=== PATIENT | male | born 2000 | race Caucasian/White ===

== ENCOUNTER 2022-06-04 08:48 | Emergency (ER) | payer OTHER, SELFPAY ==
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
[2022-06-04 11:16] VITALS: BP 140/91; PULSE 89; RESP 18; TEMP 37.8; O2SAT 100
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
--- NOTE | 2022-06-04 12:05 | PC.NURSE ---
Dr. Ocasio at bedside to assess pt
[2022-06-04] MEDS: ACETAMINOPHEN 500 MG TABLET 1000 MG PO (12:20)
[2022-06-04] MEDS: ONDANSETRON HCL ODT 4 MG TABLET PO (12:21)
--- NOTE | 2022-06-04 12:31 | PC.NURSE ---
Patient off unit to CT.
[2022-06-04 13:04] LABS: Influenza A QL RT-PCR Positive (Negative); Influenza B QL RT-PCR Negative (Negative); RSV RNA, RT-PCR Negative (Negative); SARS-CoV-2 RNA PCR Negative
[2022-06-04 13:46] VITALS: PULSE 85; RESP 16; TEMP 36.9; O2SAT 99
== END 2022-06-04 13:49 | disposition home or self-care (01) ==
PROVIDERS: Emergency Provider Emergency Medicine
DX: S06.0X0A Concussion without loss of consciousness, initial encounter (principal); J10.1 Influenza due to other identified influenza virus with other respiratory manifestations; M51.34 Other intervertebral disc degeneration, thoracic region; Z20.822 Contact with and (suspected) exposure to COVID-19; R93.7 Abnormal findings on diagnostic imaging of other parts of musculoskeletal system; M47.815 Spondylosis without myelopathy or radiculopathy, thoracolumbar region; V43.53XA Car driver injured in collision with pick-up truck in traffic accident, initial encounter
CPT/HCPCS: 70450; 71046; 72125; 72128; 72131; 87637; 99284; A9270